=== PATIENT | male | born 1940 | race Caucasian/White ===

== ENCOUNTER 2017-09-10 11:43 | Observation (INO) | payer OTHER, BC ==
[~2017-09-10] VITALS: Ht 177.8 cm; Wt 86.3 kg
[2017-09-10 12:14] LABS: HEMATOCRIT 47.3 % (38.0-50.0); HEMOGLOBIN 16.2 G/DL (12.5-16.6); MCH 29.5 PG (29.0-34.0); MCHC 34.2 G/DL (30.0-36.0); MCV 86.2 FL (86-99); PLATELET COUNT 224 K/uL (156-360); RBC DIS.WIDTH-CV 12.7 % (11.8-14.6); RBC DIS.WIDTH-SD 39.9 % (39-53); RED BLOOD COUNT 5.49 M/uL (4.00-5.50); WHITE BLOOD COUNT 7.1 K/uL (4.1-10.2)
[2017-09-10 12:26] LABS: CHLORIDE 103 mEq/L (99-109); SODIUM 140 mEq/L (136-147)
[2017-09-10 12:28] LABS: GLUCOSE 154 mg/dL (70-99)
[2017-09-10 12:32] LABS: CREATININE 1.2 mg/dL (0.6-1.3); GFR ESTIMATE (CALCULATED) > 59 mL/min/ (58.99-99999)
[2017-09-10 12:33] LABS: UREA NITROGEN (BUN) 21 mg/dL (9-23)
[2017-09-10 12:36] LABS: TROP-I INTERPRETATION NEGATIVE; TROPONIN-I < 0.01 ng/mL (0.0-0.30)
[2017-09-10 14:46] LABS: APPEARANCE CLEAR ((CLEAR)); BILIRUBIN NEGATIVE; BLOOD NEGATIVE; COLOR YELLOW ((YELLOW)); GLUCOSE (STRIP) NEGATIVE; KETONES NEGATIVE; LEUKOCYTES NEGATIVE; NITRITE NEGATIVE; PROTEIN (STRIP) NEGATIVE; SPECIFIC GRAVITY 1.015 (1.000-1.030); UCUL ADDED? NO; UROBILINOGEN 0.2 MG/DL (0.2-1.0)
[2017-09-10] MEDS ORDERED: ATORVASTATIN CA10 MG PO (15:09)
[2017-09-10] MEDS ORDERED: LOSARTAN POTAS100 MG PO (15:09)
[2017-09-10] MEDS ORDERED: METOPROLOL SUCC25 MG PO (15:09)
[2017-09-10] MEDS ORDERED: METFORMIN HCL500 M1 PO (15:09)
[2017-09-10] MEDS ORDERED: LEVOTHYROXINE75 MCG PO (15:10)
[2017-09-10] MEDS ORDERED: GLIMEPIRIDE4 MG PO (15:10)
[2017-09-10] MEDS ORDERED: LO-DOSE ASPIRIN81 M1 PO (15:11)
[2017-09-10] MEDS ORDERED: NOVOLIN N100 UNITS/ SC (15:11)
[2017-09-10 16:04] LABS: TROP-I INTERPRETATION NEGATIVE; TROPONIN-I 0.01 ng/mL (0.0-0.30)
[2017-09-10 16:35] VITALS: BP 152/71
[2017-09-10 19:03] LABS: TROP-I INTERPRETATION NEGATIVE; TROPONIN-I 0.03 ng/mL (0.0-0.30)
[2017-09-10 20:00] VITALS: BP 147/71
[2017-09-10 23:54] VITALS: BP 138/62
[2017-09-11 01:16] LABS: TROP-I INTERPRETATION NEGATIVE; TROPONIN-I 0.02 ng/mL (0.0-0.30)
[2017-09-11 03:28] VITALS: BP 140/67
[2017-09-11 05:55] LABS: HEMATOCRIT 42.9 % (38.0-50.0); HEMOGLOBIN 14.3 G/DL (12.5-16.6); MCH 28.7 PG (29.0-34.0); MCHC 33.3 G/DL (30.0-36.0); MCV 86.1 FL (86-99); PLATELET COUNT 201 K/uL (156-360); RBC DIS.WIDTH-CV 12.6 % (11.8-14.6); RBC DIS.WIDTH-SD 39.4 % (39-53); RED BLOOD COUNT 4.98 M/uL (4.00-5.50); WHITE BLOOD COUNT 6.7 K/uL (4.1-10.2)
[2017-09-11 06:13] LABS: CHLORIDE 107 MEQ/L (99-109); CREATININE 1.2 MG/DL (0.6-1.3); GFR ESTIMATE (CALCULATED) > 59 mL/min/ (58.99-99999); HDL CHOLESTEROL 25 MG/DL (Desirable>=40); LDL CHOLESTEROL 47 mg/dL (Desirable<100); NON-HDL CHOLESTEROL 73 mg/dL (Desirable<160); POTASSIUM 4.4 MEQ/L (3.7-5.4); SODIUM 141 MEQ/L (136-147); TOTAL CHOLESTEROL 98 mg/dL (Desirable<200); TRIGLYCERIDES 132 MG/DL (Normal: <150); UREA NITROGEN (BUN) 21 mg/dL (9-23)
[2017-09-11 06:28] LABS: GLUCOSE 83 mg/dL (70-99)
[2017-09-11 08:22] VITALS: BP 144/74
[2017-09-11] MEDS ORDERED: NITROSTAT0.4 MG SL (12:00)
[2017-09-11 12:34] VITALS: BP 116/60
[2017-09-11 12:35] VITALS: BP 120/68
[2017-09-11 12:36] VITALS: BP 142/69
[2017-09-11 13:27] LABS: HEMOGLOBIN A1c (GLYCOHEMOGLOB) 8.3 % (Below 5.7)
[2017-09-11 15:19] VITALS: BP 121/69
== END 2017-09-11 17:51 | disposition home or self-care (01) ==
LOC: EME 11:43 → EDOF 14:47 → ENRESERV 14:51 → 4SOUTH 16:23 → ENRESERV 16:26 → 4SOUTH 16:27
PROVIDERS: Emergency Medicine Emergency Medical Services; Hospitalist
PROC: B246ZZZ Ultrasonography of Right and Left Heart (ICD-10-PCS; principal; 2017-09-11)
DX: I25.110 Atherosclerotic heart disease of native coronary artery with unstable angina pectoris (principal); I45.10 Unspecified right bundle-branch block; R42 Dizziness and giddiness; R53.1 Weakness; Z95.5 Presence of coronary angioplasty implant and graft; I10 Essential (primary) hypertension; E11.9 Type 2 diabetes mellitus without complications; E03.9 Hypothyroidism, unspecified; E78.5 Hyperlipidemia, unspecified; I25.2 Old myocardial infarction; E11.51 Type 2 diabetes mellitus with diabetic peripheral angiopathy without gangrene; Z89.511 Acquired absence of right leg below knee; Z79.4 Long term (current) use of insulin; Z88.5 Allergy status to narcotic agent; Z82.49 Family history of ischemic heart disease and other diseases of the circulatory system; Z87.891 Personal history of nicotine dependence; Z79.82 Long term (current) use of aspirin
CPT/HCPCS: 71045; 71046; 80048; 80061; 81003; 82948; 83036; 83880; 84443; 84484; 85027; 93005; 93306; 99281; 99285; G0378; J1644; J1815; J7040